=== PATIENT | female | born 1995 | race Caucasian/White ===

== ENCOUNTER 2022-11-14 08:33 | Inpatient (IN) ==
[2022-11-14] MEDS ORDERED: BUTORPHANOL TARTRATE 1 MG/ML VIAL IV PRN (09:04)
[2022-11-14] MEDS ORDERED: LIDOCAINE 1% LOCAL 20 ML VIAL INFIL PRN (09:04)
[2022-11-14] MEDS ORDERED: OXYTOCIN 30 UNITS/500 ML BAG IV PRN ×2 (09:04→14:39)
--- NOTE | 2022-11-14 09:11 | Obstetrical Progress Note ---
Date of Service November 14, 2022 Assessment & Plan (1) : Plan: 27yo G1 @ 39 weeks Presents with labor pain reports leaking at 04;00hrs FHR; CAT1 Ctx 1-3min CTx intensity is 10/10 VE by Nurse; 2/70/-2 Nitrazine +ve Bedside son; VT Plan Admit for labor
[2022-11-14] MEDS ORDERED: SODIUM CHLORIDE 0.9% PF INJ 10 ML VIAL ONE (09:21)
[2022-11-14] MEDS ORDERED: ePHEDrine sulfate 50 MG/ML AMP ONE (09:21)
[2022-11-14] MEDS ORDERED: fentaNYL citrate PF 100 MCG/2 ML VIAL ONE (09:21)
[2022-11-14] MEDS ORDERED: BUPIVACAINE 0.25% PF 30 ML VIAL ONE (09:21)
[2022-11-14] MEDS ORDERED: LIDOCAINE 2%/EPINEPHRINE 1:200,000 20 ML PF ONE (09:21)
[2022-11-14] MEDS ORDERED: fentaNYL 2MCG/ML ROPIVACAINE 1.25MG/ML 100 ML BAG EPI ONE (09:22)
[2022-11-14] MEDS: LACTATED RINGER'S 1,000 ML IV PRN ×4 (09:26→21:33)
--- NOTE | 2022-11-14 09:37 | Anesthesiology Consultation ---
Date of Service November 14, 2022 Assessment & Plan Chart Review Chart Review: Acceptable Risk for Surgery and Patient NOT seen in Pre Admission Testing Consults Requested none ASA ASA3 Proposed Anesthesia Anesthesia Type: Labor Epidural and CSE History Height/Weight Height: 5 ft 1 in Weight: 103.873 kg Allergies Allergy/AdvReac Type Severity Reaction Status Date / Time Penicillins Allergy Intermediate Hives Verified 11/14/22 08:59 Medications Home Medications Medication Instructions Recorded Confirmed Last Taken omeprazole 20 mg capsule,delayed 20 mg PO DAILY 11/14/22 11/14/22 11/12/22 release vits no.124-ferrous fum 1 tab PO DAILY 11/14/22 11/14/22 11/12/22 27 mg iron-folic acid 800 mcg tablet ( Vitamin) sertraline 50 mg tablet (Zoloft) 50 mg PO DAILY 11/14/22 11/14/22 11/12/22 Active Medications Generic Name Dose Route Start Last Admin Trade Name Freq PRN Reason Stop Dose Admin Lactated Ringer's 1,000 mls @ 125 mls/hr 11/14/22 09:04 11/14/22 09:26 Lr IV 11/16/22 09:03 999 mls/hr .Q8H PRN Administration L&D Protocol Protocol Past Medical History Medical History Anxiety Asthma Sports induced Depression Zoloft 50mg GERD (gastroesophageal reflux disease) Obesity Exercise / Class Metabolic Activity II 4-5 Yardwork/Stairs/Walk up hill Past Family History Family History Grandmother (Maternal) Diabetes Past Surgical History Surgical History [place] teeth extracted Past Anesthesia History No Hx of Anesthesia Complications and No Family Hx of Anesthesia Complications History of PONV No Hx of PONV and No Hx of Motion Sickness Social History Smoking Status: Former smoker Smoking End Date: 03/10/22 Hx Alcohol Use: No Hx Substance Use: No Physical Exam Vital Signs Last Vital Signs Pulse 68 11/14/22 09:28 Resp 20 11/14/22 09:03 BP 135/76 11/14/22 09:25 Pulse Ox 100 11/14/22 09:28
[2022-11-14 09:57] LABS: Hemoglobin 12.9 g/dl (12.0-16.0); Mean Corpuscular Hemoglobin 30.8 pg (25.0-34.0); Mean Corpuscular Hgb Conc 34.9 g/dL (32.0-36.0); Mean Corpuscular Volume 88.3 fL (80.0-100.0); Mean Platelet Volume 11.4 fL (9.4-12.4); Platelet Count 267 K/uL (130-400); RDW Standard Deviation 44.2 fL (36.4-46.3); Red Blood Count 4.19 M/uL (4.20-5.40); White Blood Count 17.97 K/ul (4.8-10.8)
[2022-11-14] MEDS ORDERED: NALBUPHINE HCL INJ 10 MG/ML AMP IV PRN (10:26)
[2022-11-14] MEDS ORDERED: LIDOCAINE 2% MPF LOCAL 5 ML VIAL EPI PRN (10:26)
[2022-11-14] MEDS ORDERED: NALOXONE HCL 0.4 MG/1 ML VIAL/CARP IV PRN (10:26)
[2022-11-14] MEDS ORDERED: LIDOCAINE 2%/EPINEPHRINE 1:200,000 20 ML PF EPI STA (10:26)
[2022-11-14] MEDS ORDERED: SODIUM CHLORIDE 0.9% PF INJ 10 ML VIAL EPI PRN (10:26)
[2022-11-14] MEDS ORDERED: diphenhydrAMINE 50 MG/ML VIAL IV PRN (10:26)
[2022-11-14] MEDS ORDERED: SODIUM CHLORIDE 0.9% PF INJ 10 ML VIAL EPI STA (10:26)
[2022-11-14] MEDS ORDERED: fentaNYL citrate PF 100 MCG/2 ML VIAL EPI PRN (10:26)
[2022-11-14] MEDS ORDERED: fentaNYL citrate PF 100 MCG/2 ML VIAL EPI STA (10:26)
[2022-11-14] MEDS ORDERED: PROMETHAZINE HCL 25 MG in SODIUM CHLORIDE 0.9% 50 ML IV PRN (10:26)
[2022-11-14] MEDS ORDERED: BUPIVACAINE 0.25% PF 30 ML VIAL EPI PRN (10:26)
[2022-11-14] MEDS ORDERED: ONDANSETRON INJ 2 MG/ML 2 ML VIAL IV PRN (10:26)
[2022-11-14] MEDS ORDERED: NALOXONE HCL 1 MG in SODIUM CHLORIDE 0.9% 1000ML 1,000 ML IV PRN (10:26)
[2022-11-14] MEDS ORDERED: ROPIVACAINE 0.5% PF 5 MG/ML 20 ML VIAL EPI PRN (10:26)
[2022-11-14] MEDS ORDERED: ePHEDrine sulfate 50 MG/ML AMP IV PRN (10:26)
[2022-11-14] MEDS ORDERED: BUPIVACAINE 0.25% PF 30 ML VIAL EPI STA (10:26)
[2022-11-14] MEDS ORDERED: ACETAMINOPHEN 500 MG TAB PO STA (14:06)
[2022-11-14] MEDS: fentaNYL 2MCG/ML ROPIVACAINE 1.25MG/ML 100 ML BAG EPI PRN (18:32)
[2022-11-14] MEDS ORDERED: CALCIUM CARBONATE 500 MG CHEWABLE TAB PO PRN (19:58)
--- NOTE | 2022-11-14 20:01 | Obstetrical Progress Note ---
Date of Service November 14, 2022 Assessment & Plan (1) : Plan: Pt doing well PROM at 04:00hrs FHR ; 160;s Ctx ; Poorly traced Pitocin 8mu VE 6//-2 IUPC and scalp placed Pt receiving bolus for elevated tachycardia will start antibx Continue monitoring FH Admission and Anticipated Discharge Date Admission Date: November 14, 2022 Results & Data Vital Signs (Past 12 Hours) Vital Signs Temp Pulse Resp BP Pulse Ox 11/14/22 09:25 36.5 C 20 11/14/22 19:56 67 99 11/14/22 19:53 67 92 11/14/22 19:51 75 98 11/14/22 19:49 75 130/77 11/14/22 19:46 74 100 11/14/22 19:41 69 97 11/14/22 19:36 69 99 11/14/22 19:34 68 122/66 11/14/22 19:31 66 99 11/14/22 19:26 64 99 11/14/22 19:15 16 11/14/22 19:15 36.8 C 16 11/14/22 19:21 54 L 114/58 L 99 11/14/22 19:16 67 99 11/14/22 19:11 65 99 11/14/22 19:06 99 11/14/22 19:06 72 11/14/22 19:06 71 137/71 11/14/22 19:01 71 99 11/14/22 18:56 67 99 11/14/22 18:51 64 98 11/14/22 18:49 65 135/76 11/14/22 18:47 76 93 11/14/22 18:46 86 99 11/14/22 18:41 67 99 11/14/22 18:36 62 99 11/14/22 18:35 68 20 130/73 11/14/22 18:31 71 99 11/14/22 18:26 63 97 11/14/22 18:21 60 98 11/14/22 18:19 56 L 20 137/75 11/14/22 18:16 62 99 11/14/22 18:11 59 L 99 11/14/22 18:06 66 99 11/14/22 18:04 68 127/71 11/14/22 18:01 74 99 11/14/22 17:56 74 98 11/14/22 17:51 61 98 11/14/22 17:49 61 130/73 11/14/22 17:46 67 98 11/14/22 17:41 65 99 11/14/22 17:36 63 100 11/14/22 17:35 67 91 11/14/22 17:34 56 L 18 127/73 11/14/22 17:31 58 L 100 11/14/22 17:26 65 98 11/14/22 17:21 74 98 11/14/22 17:18 64 93 11/14/22 17:19 61 20 126/71 11/14/22 17:16 65 98 11/14/22 17:11 68 98 11/14/22 17:06 64 98 11/14/22 17:05 70 20 129/72 11/14/22 17:01 36.7 C 65 20 98 11/14/22 16:56 64 99 11/14/22 16:55 62 94 11/14/22 16:51 62 98 11/14/22 16:50 64 112/59 L 11/14/22 16:46 60 97 11/14/22 16:41 64 97 11/14/22 16:36 62 98 11/14/22 16:34 67 124/65 11/14/22 16:31 65 96 11/14/22 16:26 64 98 11/14/22 16:21 64 97 11/14/22 16:19 67 20 124/67 11/14/22 16:16 71 97 11/14/22 16:11 61 98 11/14/22 16:06 70 98 11/14/22 16:04 62 123/72 11/14/22 16:01 60 99 11/14/22 15:56 68 97 11/14/22 15:53 61 118/61 11/14/22 15:51 62 98 11/14/22 15:46 67 99 11/14/22 15:41 75 97 11/14/22 15:39 73 92 11/14/22 15:36 84 98 11/14/22 15:34 60 132/81 11/14/22 15:31 66 98 11/14/22 15:26 65 98 11/14/22 15:21 60 98 11/14/22 15:20 58 L 132/75 11/14/22 15:16 63 98 11/14/22 15:11 64 98 11/14/22 15:06 78 100 11/14/22 15:05 37.0 C 71 20 137/69 11/14/22 15:01 66 98 11/14/22 14:56 69 98 11/14/22 14:51 62 99 11/14/22 14:50 68 18 135/72 11/14/22 14:46 60 98 11/14/22 14:28 20 11/14/22 14:28 20 11/14/22 14:41 65 99 11/14/22 14:36 67 98 11/14/22 14:34 65 118/64 11/14/22 14:31 79 99 11/14/22 14:30 83 91 11/14/22 14:26 79 99 11/14/22 14:21 68 99 11/14/22 14:19 69 122/62 11/14/22 14:16 75 98 11/14/22 14:11 72 98 11/14/22 14:06 60 98 11/14/22 14:04 58 L 118/64 11/14/22 14:01 61 98 11/14/22 13:56 79 99 11/14/22 13:51 96 11/14/22 13:51 76 11/14/22 13:51 65 94 11/14/22 13:49 73 20 115/60 11/14/22 13:46 68 96 11/14/22 13:41 61 96 11/14/22 13:36 65 96 11/14/22 13:34 60 113/58 L 11/14/22 13:31 65 96 11/14/22 13:26 60 96 11/14/22 13:21 56 L 97 11/14/22 13:20 59 L 116/62 11/14/22 13:16 61 98 11/14/22 13:00 20 11/14/22 13:00 37.0 C 20 11/14/22 13:11 67 97 11/14/22 13:06 85 97 11/14/22 13:04 56 L 111/60 11/14/22 13:01 62 99 11/14/22 12:56 60 97 11/14/22 12:51 60 97 11/14/22 12:49 68 120/66 11/14/22 12:46 68 96 11/14/22 12:41 65 98 11/14/22 12:36 64 97 11/14/22 12:34 68 112/56 L 11/14/22 12:31 71 97 11/14/22 12:26 71 98 11/14/22 11:35 20 11/14/22 11:35 20 11/14/22 12:21 62 96 11/14/22 12:20 60 20 121/63 11/14/22 12:16 59 L 96 11/14/22 12:11 64 96 11/14/22 12:06 68 98 11/14/22 12:05 70 121/59 L 11/14/22 12:01 79 99 11/14/22 11:56 64 97 11/14/22 11:51 71 97 11/14/22 11:50 62 115/62 11/14/22 11:46 65 96 11/14/22 11:41 66 98 11/14/22 11:36 66 97 11/14/22 11:31 98 11/14/22 11:31 74 11/14/22 11:31 68 103/59 L 11/14/22 11:26 97 11/14/22 11:26 65 11/14/22 11:26 63 103/56 L 11/14/22 11:21 64 105/56 L 97 11/14/22 11:16 97 11/14/22 11:16 63 11/14/22 11:16 76 96/58 L 11/14/22 11:12 70 127/56 L 11/14/22 11:11 67 98 11/14/22 11:06 36.7 C 75 20 112/57 L 96 11/14/22 11:01 96 11/14/22 11:01 80 11/14/22 11:01 71 115/60 11/14/22 10:56 74 96 11/14/22 10:57 73 20 116/58 L 11/14/22 10:51 95 11/14/22 10:51 80 11/14/22 10:51 88 20 115/56 L 11/14/22 10:46 96 11/14/22 10:46 90 11/14/22 10:46 87 20 117/57 L 11/14/22 10:41 82 20 123/62 97 11/14/22 10:36 85 94 11/14/22 10:35 88 20 123/61 11/14/22 10:34 72 20 120/56 L 11/14/22 10:31 76 98 11/14/22 10:32 75 115/55 L 11/14/22 10:29 72 20 116/63 11/14/22 10:28 72 20 118/62 11/14/22 10:26 100 11/14/22 10:26 66 11/14/22 10:26 61 123/65 11/14/22 10:24 60 119/65 11/14/22 10:21 62 100 11/14/22 10:22 61 116/63 11/14/22 10:20 73 114/58 L 11/14/22 10:17 85 18 129/68 11/14/22 10:16 78 100 11/14/22 10:15 77 18 133/66 11/14/22 10:11 90 97 11/14/22 10:06 93 H 100 11/14/22 10:04 78 92 11/14/22 10:01 83 100 11/14/22 09:56 69 100 11/14/22 09:28 68 100 11/14/22 09:25 62 135/76 11/14/22 09:03 20
--- NOTE | 2022-11-14 23:40 | Obstetrical Progress Note ---
Date of Service November 14, 2022 Assessment & Plan (1) : Plan: pt doing well FHR: CAT1 Ctx 2-3mins Ve 10/100/-2 pt feeling urge to push started pushing with nurse anticipate VD Admission and Anticipated Discharge Date Admission Date: November 14, 2022 Results & Data Vital Signs (Past 12 Hours) Vital Signs Temp Pulse Resp BP Pulse Ox 11/14/22 23:36 73 124/61 11/14/22 23:29 79 92 11/14/22 23:26 69 70 L 11/14/22 23:23 62 92 11/14/22 23:21 96 11/14/22 23:21 73 11/14/22 23:21 65 170/99 H 11/14/22 23:17 69 90 11/14/22 23:16 66 99 11/14/22 23:11 64 98 11/14/22 23:06 62 98 11/14/22 23:05 57 L 127/61 11/14/22 23:01 59 L 97 11/14/22 22:56 65 99 11/14/22 22:52 18 11/14/22 22:52 36.4 C L 18 11/14/22 22:51 67 98 11/14/22 22:50 66 128/71 11/14/22 22:46 62 97 11/14/22 22:41 58 L 98 11/14/22 22:36 61 99 11/14/22 22:34 73 115/57 L 11/14/22 22:31 67 97 11/14/22 22:26 64 98 11/14/22 22:21 67 97 11/14/22 22:19 69 123/59 L 11/14/22 22:16 62 98 11/14/22 22:11 62 99 11/14/22 22:06 62 99 11/14/22 22:05 68 123/60 11/14/22 22:01 68 98 11/14/22 21:56 65 99 11/14/22 21:51 69 98 11/14/22 21:50 68 132/64 11/14/22 21:46 77 97 11/14/22 21:41 60 98 11/14/22 21:36 56 L 98 11/14/22 21:35 131/78 11/14/22 21:32 20 11/14/22 21:32 37.4 C 20 11/14/22 21:31 60 96 11/14/22 21:26 69 96 11/14/22 21:21 67 96 11/14/22 21:19 67 138/61 11/14/22 21:16 72 97 11/14/22 21:11 76 96 11/14/22 21:06 66 96 11/14/22 21:05 69 131/69 11/14/22 21:01 69 95 11/14/22 20:56 66 97 11/14/22 20:57 68 94 11/14/22 20:51 66 97 11/14/22 20:49 63 144/73 H 11/14/22 20:46 59 L 98 11/14/22 20:41 61 98 11/14/22 20:36 64 97 11/14/22 20:34 57 L 137/70 11/14/22 20:31 70 98 11/14/22 20:26 72 98 11/14/22 20:23 18 11/14/22 20:23 36.8 C 18 11/14/22 20:21 61 98 11/14/22 20:20 62 133/76 11/14/22 20:16 68 97 11/14/22 20:11 70 98 11/14/22 20:06 68 98 11/14/22 20:05 65 137/81 11/14/22 20:01 68 98 11/14/22 19:56 67 99 11/14/22 19:53 67 92 11/14/22 19:51 75 98 11/14/22 19:49 75 130/77 11/14/22 19:46 74 100 11/14/22 19:41 69 97 11/14/22 19:36 69 99 11/14/22 19:34 68 122/66 11/14/22 19:31 66 99 11/14/22 19:26 64 99 11/14/22 19:15 16 11/14/22 19:15 36.8 C 16 11/14/22 19:21 54 L 114/58 L 99 11/14/22 19:16 67 99 11/14/22 19:11 65 99 11/14/22 19:06 99 11/14/22 19:06 72 11/14/22 19:06 71 137/71 11/14/22 19:01 71 99 06/25/23 18:56 67 99 11/14/22 18:51 64 98 11/14/22 18:49 65 135/76 11/14/22 18:47 76 93 11/14/22 18:46 86 99 11/14/22 18:41 67 99 11/14/22 18:36 62 99 11/14/22 18:35 68 20 130/73 11/14/22 18:31 71 99 11/14/22 18:26 63 97 11/14/22 18:21 60 98 11/14/22 18:19 56 L 20 137/75 11/14/22 18:16 62 99 11/14/22 18:11 59 L 99 11/14/22 18:06 66 99 11/14/22 18:04 68 127/71 11/14/22 18:01 74 99 11/14/22 17:56 74 98 11/14/22 17:51 61 98 11/14/22 17:49 61 130/73 11/14/22 17:46 67 98 11/14/22 17:41 65 99 11/14/22 17:36 63 100 11/14/22 17:35 67 91 11/14/22 17:34 56 L 18 127/73 11/14/22 17:31 58 L 100 11/14/22 17:26 65 98 11/14/22 17:21 74 98 11/14/22 17:18 64 93 11/14/22 17:19 61 20 126/71 11/14/22 17:16 65 98 11/14/22 17:11 68 98 11/14/22 17:06 64 98 11/14/22 17:05 70 20 129/72 11/14/22 17:01 36.7 C 65 20 98 11/14/22 16:56 64 99 11/14/22 16:55 62 94 11/14/22 16:51 62 98 11/14/22 16:50 64 112/59 L 11/14/22 16:46 60 97 11/14/22 16:41 64 97 11/14/22 16:36 62 98 11/14/22 16:34 67 124/65 11/14/22 16:31 65 96 11/14/22 16:26 64 98 11/14/22 16:21 64 97 11/14/22 16:19 67 20 124/67 11/14/22 16:16 71 97 11/14/22 16:11 61 98 11/14/22 16:06 70 98 11/14/22 16:04 62 123/72 11/14/22 16:01 60 99 11/14/22 15:56 68 97 11/14/22 15:53 61 118/61 11/14/22 15:51 62 98 11/14/22 15:46 67 99 11/14/22 15:41 75 97 11/14/22 15:39 73 92 11/14/22 15:36 84 98 11/14/22 15:34 60 132/81 11/14/22 15:31 66 98 11/14/22 15:26 65 98 11/14/22 15:21 60 98 11/14/22 15:20 58 L 132/75 11/14/22 15:16 63 98 11/14/22 15:11 64 98 11/14/22 15:06 78 100 11/14/22 15:05 37.0 C 71 20 137/69 11/14/22 15:01 66 98 11/14/22 14:56 69 98 11/14/22 14:51 62 99 11/14/22 14:50 68 18 135/72 11/14/22 14:46 60 98 11/14/22 14:28 20 11/14/22 14:28 20 11/14/22 14:41 65 99 11/14/22 14:36 67 98 11/14/22 14:34 65 118/64 11/14/22 14:31 79 99 11/14/22 14:30 83 91 11/14/22 14:26 79 99 11/14/22 14:21 68 99 11/14/22 14:19 69 122/62 11/14/22 14:16 75 98 11/14/22 14:11 72 98 11/14/22 14:06 60 98 11/14/22 14:04 58 L 118/64 11/14/22 14:01 61 98 11/14/22 13:56 79 99 11/14/22 13:51 96 11/14/22 13:51 76 11/14/22 13:51 65 94 11/14/22 13:49 73 20 115/60 11/14/22 13:46 68 96 11/14/22 13:41 61 96 11/14/22 13:36 65 96 11/14/22 13:34 60 113/58 L 11/14/22 13:31 65 96 11/14/22 13:26 60 96 11/14/22 13:21 56 L 97 11/14/22 13:20 59 L 116/62 11/14/22 13:16 61 98 11/14/22 13:00 20 11/14/22 13:00 37.0 C 20 11/14/22 13:11 67 97 11/14/22 13:06 85 97 11/14/22 13:04 56 L 111/60 11/14/22 13:01 62 99 11/14/22 12:56 60 97 11/14/22 12:51 60 97 11/14/22 12:49 68 120/66 11/14/22 12:46 68 96 11/14/22 12:41 65 98 11/14/22 12:36 64 97 11/14/22 12:34 68 112/56 L 11/14/22 12:31 71 97 11/14/22 12:26 71 98 11/14/22 12:21 62 96 11/14/22 12:20 60 20 121/63 11/14/22 12:16 59 L 96 11/14/22 12:11 64 96 11/14/22 12:06 68 98 11/14/22 12:05 70 121/59 L 11/14/22 12:01 79 99 11/14/22 11:56 64 97 11/14/22 11:51 71 97 11/14/22 11:50 62 115/62 11/14/22 11:46 65 96 11/14/22 11:41 66 98
--- NOTE | 2022-11-15 00:48 | Obstetrical Progress Note ---
Date of Service November 15, 2022 Assessment & Plan (1) : Plan: Pt doing well Pushing with ctxs FHR CAT1 Ctx 2-3min Pit; 14 VE 10/100/+1 Plan Continue pushing Anticipate VD Admission and Anticipated Discharge Date Admission Date: November 14, 2022 Results & Data Vital Signs (Past 12 Hours) Vital Signs Temp Pulse Resp BP Pulse Ox 11/15/22 00:43 77 92 11/15/22 00:41 76 83 L 11/15/22 00:38 76 93 11/15/22 00:34 87 134/56 L 11/15/22 00:33 108 H 96 11/15/22 00:28 93 11/15/22 00:28 84 11/15/22 00:28 81 93 11/15/22 00:23 66 96 11/15/22 00:20 70 144/73 H 11/15/22 00:19 73 94 11/15/22 00:18 62 98 11/15/22 00:13 60 96 11/15/22 00:08 60 96 11/15/22 00:03 105 H 97 11/15/22 00:04 76 114/57 L 11/15/22 00:01 18 11/15/22 00:01 37.3 C 65 18 119/55 L 11/15/22 00:00 69 94 11/14/22 23:58 104 H 97 11/14/22 23:53 86 94 11/14/22 23:48 91 H 95 11/14/22 23:46 82 94 11/14/22 23:43 89 96 11/14/22 23:36 73 124/61 11/14/22 23:29 79 92 11/14/22 23:26 69 70 L 11/14/22 23:23 62 92 11/14/22 23:21 96 11/14/22 23:21 73 11/14/22 23:21 65 170/99 H 11/14/22 23:17 69 90 11/14/22 23:16 66 99 11/14/22 23:11 64 98 11/14/22 23:06 62 98 11/14/22 23:05 57 L 127/61 11/14/22 23:01 59 L 97 11/14/22 22:56 65 99 11/14/22 22:52 18 11/14/22 22:52 36.4 C L 18 11/14/22 22:51 67 98 11/14/22 22:50 66 128/71 11/14/22 22:46 62 97 11/14/22 22:41 58 L 98 11/14/22 22:36 61 99 11/14/22 22:34 73 115/57 L 11/14/22 22:31 67 97 11/14/22 22:26 64 98 11/14/22 22:21 67 97 11/14/22 22:19 69 123/59 L 11/14/22 22:16 62 98 11/14/22 22:11 62 99 11/14/22 22:06 62 99 11/14/22 22:05 68 123/60 11/14/22 22:01 68 98 11/14/22 21:56 65 99 11/14/22 21:51 69 98 11/14/22 21:50 68 132/64 11/14/22 21:46 77 97 11/14/22 21:41 60 98 11/14/22 21:36 56 L 98 11/14/22 21:35 131/78 11/14/22 21:32 20 11/14/22 21:32 37.4 C 20 11/14/22 21:31 60 96 11/14/22 21:26 69 96 11/14/22 21:21 67 96 11/14/22 21:19 67 138/61 11/14/22 21:16 72 97 11/14/22 21:11 76 96 11/14/22 21:06 66 96 11/14/22 21:05 69 131/69 11/14/22 21:01 69 95 11/14/22 20:56 66 97 11/14/22 20:57 68 94 11/14/22 20:51 66 97 11/14/22 20:49 63 144/73 H 11/14/22 20:46 59 L 98 11/14/22 20:41 61 98 11/14/22 20:36 64 97 11/14/22 20:34 57 L 137/70 11/14/22 20:31 70 98 11/14/22 20:26 72 98 11/14/22 20:23 18 11/14/22 20:23 36.8 C 18 11/14/22 20:21 61 98 11/14/22 20:20 62 133/76 11/14/22 20:16 68 97 11/14/22 20:11 70 98 11/14/22 20:06 68 98 11/14/22 20:05 65 137/81 11/14/22 20:01 68 98 11/14/22 19:56 67 99 11/14/22 19:53 67 92 11/14/22 19:51 75 98 11/14/22 19:49 75 130/77 11/14/22 19:46 74 100 11/14/22 19:41 69 97 11/14/22 19:36 69 99 11/14/22 19:34 68 122/66 11/14/22 19:31 66 99 11/14/22 19:26 64 99 11/14/22 19:15 16 11/14/22 19:15 36.8 C 16 11/14/22 19:21 54 L 114/58 L 99 11/14/22 19:16 67 99 11/14/22 19:11 65 99 11/14/22 19:06 99 11/14/22 19:06 72 11/14/22 19:06 71 137/71 11/14/22 19:01 71 99 11/14/22 18:56 67 99 11/14/22 18:51 64 98 11/14/22 18:49 65 135/76 11/14/22 18:47 76 93 11/14/22 18:46 86 99 11/14/22 18:41 67 99 11/14/22 18:36 62 99 11/14/22 18:35 68 20 130/73 11/14/22 18:31 71 99 11/14/22 18:26 63 97 11/14/22 18:21 60 98 11/14/22 18:19 56 L 20 137/75 11/14/22 18:16 62 99 11/14/22 18:11 59 L 99 11/14/22 18:06 66 99 11/14/22 18:04 68 127/71 11/14/22 18:01 74 99 11/14/22 17:56 74 98 11/14/22 17:51 61 98 11/14/22 17:49 61 130/73 11/14/22 17:46 67 98 11/14/22 17:41 65 99 11/14/22 17:36 63 100 11/14/22 17:35 67 91 11/14/22 17:34 56 L 18 127/73 11/14/22 17:31 58 L 100 11/14/22 17:26 65 98 11/14/22 17:21 74 98 11/14/22 17:18 64 93 11/14/22 17:19 61 20 126/71 11/14/22 17:16 65 98 11/14/22 17:11 68 98 11/14/22 17:06 64 98 11/14/22 17:05 70 20 129/72 11/14/22 17:01 36.7 C 65 20 98 11/14/22 16:56 64 99 11/14/22 16:55 62 94 11/14/22 16:51 62 98 11/14/22 16:50 64 112/59 L 11/14/22 16:46 60 97 11/14/22 16:41 64 97 11/14/22 16:36 62 98 11/14/22 16:34 67 124/65 11/14/22 16:31 65 96 11/14/22 16:26 64 98 11/14/22 16:21 64 97 11/14/22 16:19 67 20 124/67 11/14/22 16:16 71 97 11/14/22 16:11 61 98 11/14/22 16:06 70 98 11/14/22 16:04 62 123/72 11/14/22 16:01 60 99 11/14/22 15:56 68 97 11/14/22 15:53 61 118/61 11/14/22 15:51 62 98 11/14/22 15:46 67 99 11/14/22 15:41 75 97 11/14/22 15:39 73 92 11/14/22 15:36 84 98 11/14/22 15:34 60 132/81 11/14/22 15:31 66 98 11/14/22 15:26 65 98 11/14/22 15:21 60 98 11/14/22 15:20 58 L 132/75 11/14/22 15:16 63 98 11/14/22 15:11 64 98 11/14/22 15:06 78 100 11/14/22 15:05 37.0 C 71 20 137/69 11/14/22 15:01 66 98 11/14/22 14:56 69 98 11/14/22 14:51 62 99 11/14/22 14:50 68 18 135/72 11/14/22 14:46 60 98 11/14/22 14:28 20 11/14/22 14:28 20 11/14/22 14:41 65 99 11/14/22 14:36 67 98 11/14/22 14:34 65 118/64 11/14/22 14:31 79 99 11/14/22 14:30 83 91 11/14/22 14:26 79 99 11/14/22 14:21 68 99 11/14/22 14:19 69 122/62 11/14/22 14:16 75 98 11/14/22 14:11 72 98 11/14/22 14:06 60 98 11/14/22 14:04 58 L 118/64 11/14/22 14:01 61 98 11/14/22 13:56 79 99 11/14/22 13:51 96 11/14/22 13:51 76 11/14/22 13:51 65 94 11/14/22 13:49 73 20 115/60 11/14/22 13:46 68 96 11/14/22 13:41 61 96 11/14/22 13:36 65 96 11/14/22 13:34 60 113/58 L 11/14/22 13:31 65 96 11/14/22 13:26 60 96 11/14/22 13:21 56 L 97 11/14/22 13:20 59 L 116/62 11/14/22 13:16 61 98 11/14/22 13:00 20 11/14/22 13:00 37.0 C 20 11/14/22 13:11 67 97 11/14/22 13:06 85 97 11/14/22 13:04 56 L 111/60 11/14/22 13:01 62 99 11/14/22 12:56 60 97 11/14/22 12:51 60 97 11/14/22 12:49 68 120/66
[2022-11-15] MEDS: fentaNYL 2MCG/ML ROPIVACAINE 1.25MG/ML 100 ML BAG EPI PRN (00:51)
[2022-11-15] MEDS ORDERED: miSOPROStoL 200 MCG TAB ONE (04:28)
[2022-11-15] MEDS ORDERED: METHYLERGONOVINE MALEATE 0.2 MG/ML AMP ONE (04:28)
[2022-11-15] MEDS ORDERED: OXYTOCIN 30 UNITS/500 ML BAG IV PRN (04:44)
[2022-11-15] MEDS ORDERED: METHYLERGONOVINE MALEATE 0.2 MG/ML AMP IM ONE (04:44)
[2022-11-15] MEDS ORDERED: HYDROCORTISONE ACETATE 25 MG SUPP PR PRN (04:44)
[2022-11-15] MEDS ORDERED: BENZOCAINE 20% AER SPR 82.5 GM CAN EXT PRN (04:44)
[2022-11-15] MEDS ORDERED: ACETAMINOPHEN 325 MG TAB PO PRN (04:44)
[2022-11-15] MEDS ORDERED: miSOPROStoL 200 MCG TAB PR ONE (04:44)
[2022-11-15] MEDS ORDERED: DIPHTHERIA/TETANUS/PERTUSSIS Vaccine (Tdap, Age 7+yrs) 0.5mL SYR/VL IM ONE (04:44)
--- NOTE | 2022-11-15 05:09 | Obstetrical Progress Note ---
Date of Service November 15, 2022 Assessment & Plan (1) Normal course: Plan: Patient delivered a live infant male in left occiput anterior presentation there was no nuchal cord which was easily reduced. was delivered and handed over to the pediatric team. there was terminal meconium present. Meconium was not present before delivery. Delayed cord clamping was therefore not performed. Cord blood is obtained Cord gasses are obtained Meconium is present and thick Placenta is spontaneously delivered. Inspection of the perineum showed a second-degree midline laceration. Laceration is repaired in layers with 2-0 Vicryl. Rectal exam post repair showed good sphincter tone no sutures palpated in the rectum. Estimated blood loss is 450 cc per Infants weight and scores are in the pediatric record Mother and baby are stable in in the recovery Admission and Anticipated Discharge Date Admission Date: November 14, 2022 Results & Data Vital Signs (Past 12 Hours) Vital Signs Temp Pulse Resp BP Pulse Ox 11/15/22 05:04 65 144/75 H 11/15/22 05:01 64 100 11/15/22 04:57 75 85 L 11/15/22 04:56 72 100 11/15/22 04:51 81 100 11/15/22 04:48 67 138/83 11/15/22 04:46 69 100 11/15/22 04:41 77 100 11/15/22 04:40 77 137/78 11/15/22 04:36 71 98 11/15/22 04:33 77 135/72 11/15/22 04:31 67 100 11/15/22 04:26 63 100 11/15/22 04:27 58 L 128/69 11/15/22 04:25 62 87 L 11/15/22 04:21 96 H 96 11/15/22 04:16 92 H 100 11/15/22 04:11 120 H 100 11/15/22 04:06 106 H 95 11/15/22 04:01 84 100 11/15/22 03:59 111 H 83 L 11/15/22 03:56 115 H 100 11/15/22 03:53 18 11/15/22 03:53 37.5 C 18 11/15/22 03:35 85 110/69 11/15/22 03:20 65 115/59 L 11/15/22 03:07 75 119/68 11/15/22 03:04 77 98 11/15/22 03:05 79 85 L 11/15/22 02:59 69 99 11/15/22 02:54 68 100 11/15/22 02:49 70 98 11/15/22 02:44 68 98 11/15/22 02:39 93 H 98 11/15/22 02:20 75 137/99 11/15/22 02:18 69 95 11/15/22 02:19 68 88 L 11/15/22 02:13 72 87 L 11/15/22 02:12 95 H 81 L 11/15/22 02:08 66 94 11/15/22 02:06 37.4 C 63 18 84 L 11/15/22 02:04 61 108/54 L 11/15/22 02:03 64 94 11/15/22 02:00 67 87 L 11/15/22 01:58 68 91 11/15/22 01:56 61 111/56 L 11/15/22 01:53 92 11/15/22 01:53 67 11/15/22 01:53 102 H 89 L 11/15/22 01:48 95 11/15/22 01:48 65 11/15/22 01:48 60 79 L 11/15/22 01:43 70 92 11/15/22 01:42 70 83 L 11/15/22 01:38 75 93 11/15/22 01:33 93 11/15/22 01:33 91 H 11/15/22 01:33 77 80 L 11/15/22 01:28 37.7 C H 104 H 18 94 11/15/22 01:23 92 H 84 L 11/15/22 01:20 75 85 L 11/15/22 01:18 81 93 11/15/22 01:13 92 11/15/22 01:13 77 11/15/22 01:13 73 82 L 11/15/22 01:08 86 94 11/15/22 01:06 78 80 L 11/15/22 01:04 83 109/60 11/15/22 01:03 82 93 11/15/22 01:00 116 H 75 L 11/15/22 00:58 78 78 L 11/15/22 00:54 98 H 84 L 11/15/22 00:53 76 93 11/15/22 00:48 73 91 11/15/22 00:49 78 87 L 11/15/22 00:43 77 92 11/15/22 00:41 76 83 L 11/15/22 00:38 76 93 11/15/22 00:34 87 134/56 L 11/15/22 00:33 108 H 96 11/15/22 00:28 93 11/15/22 00:28 84 11/15/22 00:28 81 93 11/15/22 00:23 66 96 11/15/22 00:20 70 144/73 H 11/15/22 00:19 73 94 11/15/22 00:18 62 98 11/15/22 00:13 60 96 11/15/22 00:08 60 96 11/15/22 00:03 105 H 97 11/15/22 00:04 76 114/57 L 11/15/22 00:01 18 11/15/22 00:01 37.3 C 65 18 119/55 L 11/15/22 00:00 69 94 11/14/22 23:58 104 H 97 11/14/22 23:53 86 94 11/14/22 23:48 91 H 95 11/14/22 23:46 82 94 11/14/22 23:43 89 96 11/14/22 23:36 73 124/61 11/14/22 23:29 79 92 11/14/22 23:26 69 70 L 11/14/22 23:23 62 92 11/14/22 23:21 96 11/14/22 23:21 73 11/14/22 23:21 65 170/99 H 11/14/22 23:17 69 90 11/14/22 23:16 66 99 11/14/22 23:11 64 98 11/14/22 23:06 62 98 11/14/22 23:05 57 L 127/61 11/14/22 23:01 59 L 97 11/14/22 22:56 65 99 11/14/22 22:52 18 11/14/22 22:52 36.4 C L 18 11/14/22 22:51 67 98 11/14/22 22:50 66 128/71 11/14/22 22:46 62 97 11/14/22 22:41 58 L 98 11/14/22 22:36 61 99 11/14/22 22:34 73 115/57 L 11/14/22 22:31 67 97 11/14/22 22:26 64 98 11/14/22 22:21 67 97 11/14/22 22:19 69 123/59 L 11/14/22 22:16 62 98 11/14/22 22:11 62 99 11/14/22 22:06 62 99 11/14/22 22:05 68 123/60 11/14/22 22:01 68 98 11/14/22 21:56 65 99 11/14/22 21:51 69 98 11/14/22 21:50 68 132/64 11/14/22 21:46 77 97 11/14/22 21:41 60 98 11/14/22 21:36 56 L 98 11/14/22 21:35 131/78 11/14/22 21:32 20 11/14/22 21:32 37.4 C 20 11/14/22 21:31 60 96 11/14/22 21:26 69 96 11/14/22 21:21 67 96 11/14/22 21:19 67 138/61 11/14/22 21:16 72 97 11/14/22 21:11 76 96 11/14/22 21:06 66 96 11/14/22 21:05 69 131/69 11/14/22 21:01 69 95 11/14/22 20:56 66 97 11/14/22 20:57 68 94 11/14/22 20:51 66 97 11/14/22 20:49 63 144/73 H 11/14/22 20:46 59 L 98 11/14/22 20:41 61 98 11/14/22 20:36 64 97 11/14/22 20:34 57 L 137/70 11/14/22 20:31 70 98 11/14/22 20:26 72 98 11/14/22 20:23 18 11/14/22 20:23 36.8 C 18 11/14/22 20:21 61 98 11/14/22 20:20 62 133/76 11/14/22 20:16 68 97 11/14/22 20:11 70 98 11/14/22 20:06 68 98 11/14/22 20:05 65 137/81 11/14/22 20:01 68 98 11/14/22 19:56 67 99 11/14/22 19:53 67 92 11/14/22 19:51 75 98 11/14/22 19:49 75 130/77 11/14/22 19:46 74 100 11/14/22 19:41 69 97 11/14/22 19:36 69 99 11/14/22 19:34 68 122/66 11/14/22 19:31 66 99 11/14/22 19:26 64 99 11/14/22 19:15 16 11/14/22 19:15 36.8 C 16 11/14/22 19:21 54 L 114/58 L 99 11/14/22 19:16 67 99 11/14/22 19:11 65 99 11/14/22 19:06 99 11/14/22 19:06 72 11/14/22 19:06 71 137/71 11/14/22 19:01 71 99 11/14/22 18:56 67 99 11/14/22 18:51 64 98 11/14/22 18:49 65 135/76 11/14/22 18:47 76 93 11/14/22 18:46 86 99 11/14/22 18:41 67 99 11/14/22 18:36 62 99 11/14/22 18:35 68 20 130/73 11/14/22 18:31 71 99 11/14/22 18:26 63 97 11/14/22 18:21 60 98 11/14/22 18:19 56 L 20 137/75 11/14/22 18:16 62 99 11/14/22 18:11 59 L 99 11/14/22 18:06 66 99 11/14/22 18:04 68 127/71 11/14/22 18:01 74 99 11/14/22 17:56 74 98 11/14/22 17:51 61 98 11/14/22 17:49 61 130/73 11/14/22 17:46 67 98 11/14/22 17:41 65 99 11/14/22 17:36 63 100 11/14/22 17:35 67 91 11/14/22 17:34 56 L 18 127/73 11/14/22 17:31 58 L 100 11/14/22 17:26 65 98 11/14/22 17:21 74 98 11/14/22 17:18 64 93 11/14/22 17:19 61 20 126/71 11/14/22 17:16 65 98 11/14/22 17:11 68 98
[2022-11-15 05:15] LABS: Base Excess Cord Venous Blood -4.9 mEq/L (-7.7-1.9); Cord Venous Blood HCO3 21 mmol/L (18.4-26.8); Cord Venous Blood PCO2 39 mmHg (30.4-57.2); Cord Venous Blood PO2 26 mmHg (14.1-43.3); Cord Venous Blood pH 7.33 (7.20-7.44); O2 Saturation Cord Venous Bld < 60.0 % (<68)
[2022-11-15] MEDS: IBUPROFEN 600 MG TAB PO PRN ×3 (05:46→19:48)
--- NOTE | 2022-11-15 09:21 | Anesthesia Procedure Note ---
Date of Service November 15, 2022 Anesthesia Post Epidural Note Vital Signs Vital Signs: Temp Pulse Resp BP Pulse Ox O2 Del Method 37.2 C 64 18 126/78 97 Room Air 11/15/22 07:57 11/15/22 07:57 11/15/22 07:57 11/15/22 07:57 11/15/22 07:57 11/15/22 07:57 Pain Intensity Bilateral Abdomen: Pain Intensity: 5 Episiotomy/Laceration: Pain Intensity: 2 Notes Mental Status: alert / awake / arousable and participated in evaluation Patient Amnestic to Procedure: No Nausea / Vomiting: adequately controlled Pain: adequately controlled Airway Patency, RR, SpO2: stable & adequate BP & HR: stable & adequate Hydration State: stable & adequate Neuraxial Anesthesia: was administered and sensory block resolved Anesthetic Complications: no major complications apparent and Pt Satisfied with anesthetic care Epidural: Removed without complications and With tip intact
[2022-11-15] MEDS: DOCUSATE SODIUM 100 MG CAP PO SCH ×2 (10:33→19:48)
[2022-11-15] MEDS: PRENATAL VITAMIN 1 TAB PO SCH (10:33)
[2022-11-16] MEDS: IBUPROFEN 600 MG TAB PO PRN ×3 (03:20→13:10)
[2022-11-16 07:14] LABS: Hematocrit (blood only) 32.2 % (37.0-47.0); Hemoglobin 10.9 g/dl (12.0-16.0); Mean Corpuscular Hemoglobin 30.8 pg (25.0-34.0); Mean Corpuscular Hgb Conc 33.9 g/dL (32.0-36.0); Platelet Count 200 K/uL (130-400); RDW Coefficient of Variation 14.4 % (11.5-14.5); RDW Standard Deviation 47.8 fL (36.4-46.3); Red Blood Count 3.54 M/uL (4.20-5.40); White Blood Count 12.92 K/ul (4.8-10.8)
--- NOTE | 2022-11-16 08:44 | Obstetrical Progress Note ---
Date of Service November 16, 2022 Assessment & Plan (1) delivery delivered: POD #1 pt doing well continue day 1 care Results & Data Vital Signs (Past 12 Hours) Vital Signs Temp Pulse Resp BP Pulse Ox O2 Del Method 11/16/22 08:00 36.7 C 69 18 134/78 99 Room Air 11/16/22 03:20 36 C L 67 18 111/71 11/15/22 23:40 36.8 C 60 18 109/71
--- NOTE | 2022-11-16 08:45 | Obstetrical Progress Note ---
Date of Service November 16, 2022 Assessment & Plan (1) Normal course: PPD #1 pt doing well anticipate disch this evening Subjective Ambulation: ambulating normally Voiding: no voiding problems Passing Gas:: Yes Diet Tolerance:: regular diet Lochia:: Small Feeding Type:: breast feeding Review of Systems All systems reviewed & are unremarkable except as noted in HPI & below Physical Exam Constitutional WD/WN, vitals as above well developed and well nourished Eyes PERRL, conjunctivae normal, anicteric sclerae Neck trachea midline, no thyromegaly Respiratory normal respiratory effort, lungs clear to auscultation Auscultation: no crackles, no rales and no wheezes Cardiovascular RRR, no murmur, no edema Gastrointestinal (Abdomen) normal bowel sounds, soft, nontender, no hepatosplenomegaly Uterus is below umbilicus Musculoskeletal no cyanosis or clubbing, extremities motor strength 5/5 Skin no rashes, warm and dry Neurologic patellar DTR's 2+ bilat, sensation intact Psychiatric A+Ox3, euthymic affect Genitourinary normal external appearance Results & Data Vital Signs (Past 12 Hours) Vital Signs Temp Pulse Resp BP Pulse Ox O2 Del Method 11/16/22 08:00 36.7 C 69 18 134/78 99 Room Air 11/16/22 03:20 36 C L 67 18 111/71 11/15/22 23:40 36.8 C 60 18 109/71
[2022-11-16] MEDS: DOCUSATE SODIUM 100 MG CAP PO SCH (08:47)
[2022-11-16] MEDS: PRENATAL VITAMIN 1 TAB PO SCH (08:47)
[2022-11-16] MEDS ORDERED: SERTRALINE HCL 50 MG TABLET PO SCH (09:00)
[2022-11-16] MEDS ORDERED: bisacodyL 5 MG TABEC PO SCH (20:00)
[2022-11-17] MEDS ORDERED: bisacodyL 10 MG SUPP PR PRN (04:44)
== END 2022-11-16 13:30 | disposition home or self-care (01) | DRG 807 ==
LOC: OPB 08:33 → 4S1 08:40 → 4E2 11-15 07:17